=== PATIENT | male | born 1995 | race Two or more races ===

== ENCOUNTER 2021-12-07 14:04 | Emergency (ER) | payer BC, OTHER ==
[~2021-12-07] VITALS: Ht 180.3 cm; Wt 76.2 kg
[2021-12-07 14:23] VITALS: BP 149/84
== END 2021-12-07 17:59 | disposition left against medical advice (07) ==
LOC: ER 14:08
DX: S00.93XA Contusion of unspecified part of head, initial encounter (principal); Z53.29 Procedure and treatment not carried out because of patient's decision for other reasons; Y04.8XXA Assault by other bodily force, initial encounter; Y93.89 Activity, other specified; Y92.89 Other specified places as the place of occurrence of the external cause; Y99.8 Other external cause status
CPT/HCPCS: 70450; 70486